=== PATIENT | male | born 1960 | race Caucasian/White ===

== ENCOUNTER → 2020-03-27 15:03 | Outpatient (CLI) | payer BC, SELFPAY ==
--- NOTE | 2020-03-27 15:06 | CA_ITS ---
APPROVED REPORT EXAM: Comprehensive 2D, Doppler, and color-flow Echocardiogram Conference Planning Manager: Josee Molina RVT Ht: 5 ft 11 in Wt: 212lbs BSA: 2.16 BP: 142/82 mmHg Indications: SOA,CP,HTN,HLD,CABG,CAD,ABN EKG 2D Dimensions LVOT 1.93 cm (M/F) 1.5-2.5 M-Mode Dimensions RVDd 3.21 cm (0.9-2.6) LA Diam 3.93 cm (1.9-4.0) LVDd 5.17 cm (3.5-5.7) Ao Diam 3.37 cm (2.0-3.7) LVDs 3.67 cm (3.5-5.7) IVSd 0.53 cm (0.6-1.1) PWd 0.86 cm (0.6-1.1) EF (Teich) 55.40% FS 29.00% EDV (Teich) 127.80 mL ESV (Teich) 57.00 mL LV Diastology E Decel Time 163.00 (160-240 msec) E/A Ratio 0.7 MED E' 5.20 (< 7 cm/sec) E'/MED E' Ratio 15.19 (>14) LAT E' 10.20 (<10 cm/sec) E/LAT E' Ratio 7.75 (>14) Mitral Valve MV E Max Terrell. 79.00 (40-130 cm/s) MV A Velocity 111.00 (40-130 cm/s) E/A Ratio 0.71 MV Decel. Time 163.00 (160-240 ms) MV PHT 48.00 ms Pulmonary Valve PV Peak Velocity 83.00 (50-150 cm/s) Tricuspid Valve TR P. Velocity 186.00 cm/s RAP Estimate 10.00 mmHg RVSP 23.90 mmHg Left Ventricle Technically difficult study because of the patient fact in poor acoustic windows. Left atrium is mildly enlarged, left ventricle is normal size, mild concentric left ventricular hypertrophy, visually estimated ejection fraction 45%, there is marked hypokinesis involving the inferior basal and posterolateral wall. Grade 1 diastolic dysfunction seen with tissue Doppler evidence of raise left atrial pressure. Right Ventricle Right atrium and right ventricle are normal size and contractility. Aortic Valve Aortic valve is minimally thickened and fibrosed, there is no aortic stenosis or aortic insufficiency. Mitral Valve Mitral valve leaflets are minimally thickened, there is mild mitral regurgitation. Tricuspid Valve Tricuspid valve is grossly normal, there is mild tricuspid regurgitation, tricuspid regurgitation jet velocity is inadequate for calculation of the right ventricular systolic pressure. Pulmonic Valve Chitra valve is poorly visualized. Great Vessels Aortic root is normal size. Pericardium No significant pericardial effusion noted. Conclusion 1. Mildly enlarged left atrium, normal left ventricular size, mild concentric left ventricular hypertrophy, visually estimated ejection fraction 45% with segmental wall motion abnormality described above, grade 1 diastolic dysfunction seen with tissue Doppler evidence of raise left atrial pressure. 2. Mild mitral and tricuspid regurgitation. 3. No significant pericardial effusion noted. Electronically signed by : Flako Shell, 03/28/2020 06:26:32
== END ==
PROVIDERS: PCP Family Medicine; Visit Provider Nurse Practitioner Family
DX: R06.00 Dyspnea, unspecified (principal); R07.89 Other chest pain; R94.31 Abnormal electrocardiogram [ECG] [EKG]; I25.708 Atherosclerosis of coronary artery bypass graft(s), unspecified, with other forms of angina pectoris; E78.5 Hyperlipidemia, unspecified; I10 Essential (primary) hypertension; R40.0 Somnolence
CPT/HCPCS: 93306

== ENCOUNTER → 2020-04-08 12:06 | Outpatient (CLI) | payer BC, SELFPAY ==
[2020-04-08 12:18] LABS: Basophils % 0.5 % (0.1-2.0); Eosinophils # 0.3 K/mm3 (0.0-0.4); Eosinophils % 4.8 % (0.1-12.0); Hematocrit 45.8 % (42.0-52.0); Hemoglobin 15.4 g/dL (14.1-18.0); Lymphocytes # 1.8 K/mm3 (0.7-4.5); Lymphocytes % 25.4 % (10-50); Mean Corpuscular HGB Conc 33.6 g/dL (31.8-35.4); Mean Corpuscular Hemoglobin 30.5 pg (27.0-31.2); Mean Corpuscular Volume 90.8 fl (80-94); Mean Platelet Volume 7.9 fl (7.4-10.4); Monocytes # 0.5 K/mm3 (0.1-1.0); Monocytes % 6.5 % (1.7-9.3); Neutrophils # 4.4 K/mm3 (1.8-7.8); Neutrophils % 62.9 % (37.0-80.0); Platelet Count 215 K/mm3 (142-424); Red Blood Count 5.05 M/mm3 (4.60-6.20); Red Cell Distribution Width 13.4 % (11.5-17.5)
[2020-04-08 13:32] LABS: Anion Gap 11.4 mEq/L (5-15); Blood Urea Nitrogen 14 mg/dl (9-20); Calcium 9.5 mg/dl (8.4-10.2); Carbon Dioxide 30 mmol/L (22.0-30.0); Chloride 102 mmol/L (98-107); Estimated Glomerular Filt Rate 99 ml/min (>60); GFR (African American) 120 ML/MIN (>60); Glucose 115 mg/dl (74-100); Potassium 4.4 mmoL/L (3.5-5.1); Sodium 139 mmol/L (136-145)
[2020-04-08 14:29] LABS: Coronavirus 19 IgG Antibody Negative (Negative); Coronavirus 19 IgM Antibody Negative (Negative)
== END ==
PROVIDERS: Visit Provider Urology
DX: Z01.810 Encounter for preprocedural cardiovascular examination (principal); Z11.52 Encounter for screening for COVID-19; R06.00 Dyspnea, unspecified; R93.1 Abnormal findings on diagnostic imaging of heart and coronary circulation; I25.708 Atherosclerosis of coronary artery bypass graft(s), unspecified, with other forms of angina pectoris; E78.2 Mixed hyperlipidemia; I10 Essential (primary) hypertension
CPT/HCPCS: 36415; 80048; 85025; 86328

== ENCOUNTER 2020-04-10 09:36 | Day surgery (SDC) | payer BC, SELFPAY ==
[2020-04-10] VITALS (11 sets, daily range): BP systolic 146–200; BP diastolic 81–110; PULSE 61–84; RESP 16–20; O2SAT 80–98; BMI 29.9
--- NOTE | 2020-04-10 | IR_ITS ---
APPROVED REPORT Patient Location: Outpatient PROCEDURES Left heart catheterization Left ventriculogram Selective coronary angiogram Selective engagement of the left internal mammary artery to the LAD Selective engagement of the saphenous vein graft to the right coronary artery Selective engagement of the saphenous vein graft to the circumflex artery INDICATION Coronary artery disease, Angina pectoris, History of coronary bypass surgery Informed consent was obtained prior to the procedure. COMPLICATIONS NONE Estimated Blood Loss: LESS THAN 10 ML TECHNIQUE One percent lidocaine used to anesthetize the right groin. The right femoral artery was accessed via the Seldinger technique and a 5 Martiniquais sheath was placed in the right femoral artery. A JL 4, JR4 and a POLLOCK catheter were used to perform left heart catheterization, left ventriculogram selective coronary angiography as well as selective engagement of the 2 vein grafts and the left internal mammary artery. At the end of the procedure the apparatus was removed the groin was reprepped gloves were changed sheath was removed good hemostasis was achieved using Perclose device patient was transferred to the postop holding in stable condition ANGIOGRAPHIC RESULTS The left main artery Is patent The left anterior descending artery Ostially occluded The circumflex artery Is nondominant yet still large. The proximal segment has a 50% stenosis followed by mid vessel 80% stenosis. Competitive flow is identified from a vein graft The right coronary artery Is a dominant vessel and has a mid vessel 80% stenosis followed by distal complex sequential 90% stenosis. The posterior descending artery is proximally occluded. This vessel supplies a 2 mm posterior lateral branch which has a mid vessel 90% stenosis and then become subtotally occluded distally supplying a small amount of myocardium. The PARRISH ventriculogram reveals Dilated ventricle ejection fraction 35 to 40% with inferior wall akinesis The left ventricular end-diastolic pressure 15 mmHg The POLLOCK graft is widely patent to the LAD The saphenous vein graft supplying a diagonal artery is widely patent Saphenous vein graft supplying a small posterior descending artery is patent. The graft itself is small caliber and supplies a small posterior descending artery IMPRESSION Coronary disease as described above Patient has extensive disease throughout the right coronary artery as described above however distally this supplies a small amount of myocardium with an akinetic inferior wall. Although technically the right coronary artery could be stented in the mid and distal segment there is very poor runoff distally supplying a small amount of myocardium which would almost certainly cause a stent thrombosis in the mid and distal right coronary stent. Essentially this vessel was not clinically appropriate for revascularization due to the small amount of myocardium supplied distally I am concerned about the syncope with the inferior wall akinesis and reduced ejection fraction. The echocardiogram did not demonstrate inferior wall akinesis however this is very apparent on LV gram. Patient will be referred to electrophysiology for EP study Aggressive risk factor modification Beta-blockers combined with DESHAUN inhibitors LDL less than 55 Avoidance of tobacco products I would recommend loop recorder be placed today or soon as possible Patient requires better blood pressure control. His blood pressure was quite elevated today. He will be started on bisoprolol 10 mg daily Electronically signed by : Ramon Harvey, 04/10/2020 12:50:06
== END 2020-04-10 15:46 ==
LOC: CATHLAB 09:38
PROVIDERS: Visit Provider Internal Medicine
DX: I25.118 Atherosclerotic heart disease of native coronary artery with other forms of angina pectoris (principal); I25.708 Atherosclerosis of coronary artery bypass graft(s), unspecified, with other forms of angina pectoris; Z95.1 Presence of aortocoronary bypass graft; Z95.5 Presence of coronary angioplasty implant and graft; I25.2 Old myocardial infarction; I50.32 Chronic diastolic (congestive) heart failure; I11.0 Hypertensive heart disease with heart failure; Z79.899 Other long term (current) drug therapy; Z79.01 Long term (current) use of anticoagulants; Z79.82 Long term (current) use of aspirin
CPT/HCPCS: 93459; 99152; C1725; C1760; C1769; C1894; J1644; Q9967

== ENCOUNTER 2020-04-13 08:38 | Day surgery (SDC) | payer BC, SELFPAY ==
[2020-04-13 08:42] VITALS: BMI 29.8
[2020-04-13 08:58] VITALS: BP 136/84; PULSE 68; RESP 13; TEMP 36.3; O2SAT 97
[2020-04-13 09:03] VITALS: PULSE 63
[2020-04-13 09:22] VITALS: BP 138/87; PULSE 63; RESP 20; TEMP 36.6; O2SAT 97
--- NOTE | 2020-04-13 09:26 | P.PCN_ITS ---
[facility] Loop Recorder Date: 04/13/20 Time: 09:15 Procedure Performed:: Implantation of loop recorder Indication:: Syncope Technique:: Patient was brought to the cardiac [employer]. After informed consent obtained, 1% lidocaine with epinephrine was used to anesthetize the site along the left anterior aspect of the chest near the sternal border. Using the preformed scalpel, an incision was made and using the supplied preloaded apparatus, the lo op recorder was placed subcutaneously without difficulty. Following the deployment of the loop recorder interrogation of the device was performed to ensure appropriate voltage was being detecte(0.43 mV). Once this was verified, Steri-Strips were placed over the incision and the patient was prepped to discharge home. Patient tolerated the procedure well with minimal discomfort. Impression:: Successful implantation of [employer], a [employer] loop recorder Serial Number:: [id number] Plan:: Routine postop care
[2020-04-13 09:31] VITALS: BP 138/87; O2SAT 98
== END 2020-04-13 11:00 | disposition home or self-care (01) ==
LOC: CATHLAB 08:39
PROVIDERS: Visit Provider Internal Medicine
DX: I20.9 Angina pectoris, unspecified (principal); I11.0 Hypertensive heart disease with heart failure; I50.31 Acute diastolic (congestive) heart failure; I25.118 Atherosclerotic heart disease of native coronary artery with other forms of angina pectoris; I25.708 Atherosclerosis of coronary artery bypass graft(s), unspecified, with other forms of angina pectoris
CPT/HCPCS: 33285

== ENCOUNTER → 2020-05-15 08:54 | Outpatient (CLI) | payer BC, SELFPAY ==
[2020-05-15 09:27] LABS: Hemoglobin A1C 5.8 % (4.0-6.0)
[2020-05-15 09:33] LABS: Chloride 104 mmol/L (98-107); Potassium 4.1 mmoL/L (3.5-5.1); Sodium 142 mmol/L (136-145)
[2020-05-15 09:35] LABS: Alanine Aminotransferase 26 U/L (12-78); Aspartate Amino Transferase 27 U/L (17-59); Blood Urea Nitrogen 13 mg/dl (9-20); Estimated Glomerular Filt Rate 86 ml/min (>60); GFR (African American) 105 ML/MIN (>60)
[2020-05-15 09:36] LABS: Albumin Level 4.3 g/dl (3.5-5.0); Albumin/Globulin Ratio 1.5 (1.1-1.8); Alkaline Phosphatase 109 U/L (38-126); Anion Gap 9.1 mEq/L (5-15); Bilirubin,Total 0.8 mg/dl (0.2-1.3); Calcium 9.5 mg/dl (8.4-10.2); Carbon Dioxide 33 mmol/L (22.0-30.0); Chol/HDL Ratio 2.5 (1-3.5); Cholesterol 122 mg/dl (140-200); Globulin 2.9 g/dL (1.3-3.2); Glucose 106 mg/dl (74-100); HDL Cholesterol 49 mg/dl (40-60); Total Protein,Serum 7.2 g/dl (6.3-8.2); Triglycerides 119 mg/dl (30-150); VLDL Cholesterol 24 mg/dL (0-40)
== END ==
PROVIDERS: Visit Provider Nurse Practitioner Family
DX: Z00.00 Encounter for general adult medical examination without abnormal findings (principal); R73.9 Hyperglycemia, unspecified
CPT/HCPCS: 36415; 80053; 80061; 83036

== ENCOUNTER → 2020-05-29 13:22 | Outpatient (CLI) | payer BC, SELFPAY | PROVIDERS: PCP Nurse Practitioner Family; Visit Provider Internal Medicine Clinical Cardiac Electrophysiology | DX: Z01.818 Encounter for other preprocedural examination (principal); Z20.822 Contact with and (suspected) exposure to COVID-19 | CPT/HCPCS: U0003 ==

== ENCOUNTER → 2020-07-04 10:06 | Outpatient (CLI) | payer BC, SELFPAY ==
--- NOTE | 2020-07-04 10:11 | XR_ITS ---
PROCEDURE: XR CHEST 2V CLINICAL HISTORY: dyspnea COMPARISON: No exams were available for comparison FINDINGS: Median sternotomy and mediastinal clips are noted. Lobe triple recorder device is noted projecting over the left heart border. No lobar consolidation, pleural effusions or pneumothorax. Cardiac size and central pulmonary vasculature within normal limits. Vascular calcification is noted. Visualized osseous structures are unremarkable. IMPRESSION: Status post CABG. No lobar consolidation or pleural effusions. Dictated by: Dariela Boyd 07/04/2020 10:47 Dariela Boyd in OV 07/04/2020 10:47
== END ==
PROVIDERS: PCP Nurse Practitioner Family; Visit Provider Internal Medicine
DX: R06.00 Dyspnea, unspecified (principal); I20.9 Angina pectoris, unspecified; I51.9 Heart disease, unspecified; E78.5 Hyperlipidemia, unspecified; I10 Essential (primary) hypertension
CPT/HCPCS: 71046

== ENCOUNTER → 2020-07-10 15:12 | Outpatient (CLI) | payer BC, SELFPAY ==
[2020-07-10 15:30] LABS: Basophils # 0.1 K/mm3 (0-0.2); Basophils % 0.6 % (0.1-2.0); Eosinophils # 0.3 K/mm3 (0.0-0.4); Eosinophils % 4.1 % (0.1-12.0); Hematocrit 42.5 % (42.0-52.0); Hemoglobin 14.3 g/dL (14.1-18.0); Lymphocytes # 2.1 K/mm3 (0.7-4.5); Lymphocytes % 27.4 % (10-50); Mean Corpuscular HGB Conc 33.7 g/dL (31.8-35.4); Mean Corpuscular Hemoglobin 30.5 pg (27.0-31.2); Mean Corpuscular Volume 90.4 fl (80-94); Mean Platelet Volume 7.8 fl (7.4-10.4); Monocytes # 0.6 K/mm3 (0.1-1.0); Monocytes % 7.1 % (1.7-9.3); Neutrophils # 4.7 K/mm3 (1.8-7.8); Neutrophils % 60.8 % (37.0-80.0); Platelet Count 254 K/mm3 (142-424); Red Cell Distribution Width 13.3 % (11.5-17.5); White Blood Count 7.8 K/mm3 (4.8-10.8)
[2020-07-10 17:12] LABS: Chloride 106 mmol/L (98-107); Sodium 140 mmol/L (136-145)
[2020-07-10 17:13] LABS: Potassium 4.7 mmoL/L (3.5-5.1)
[2020-07-10 17:15] LABS: Alanine Aminotransferase 29 U/L (12-78); Anion Gap 10.7 mEq/L (5-15); Aspartate Amino Transferase 29 U/L (17-59); Bilirubin,Unconjugated 0.3 mg/dL (0.0-1.1); Blood Urea Nitrogen 11 mg/dl (9-20); Calcium 9.1 mg/dl (8.4-10.2); Carbon Dioxide 28 mmol/L (22.0-30.0); Estimated Glomerular Filt Rate 99 ml/min (>60); GFR (African American) 120 ML/MIN (>60); Glucose 98 mg/dl (74-100)
[2020-07-10 17:16] LABS: Albumin Level 4.1 g/dl (3.5-5.0); Alkaline Phosphatase 113 U/L (38-126); Bilirubin,Direct 0.1 mg/dl (0.0-0.4); Bilirubin,Indirect 0.3 mg/dL (0.0-0.9); Bilirubin,Total 0.4 mg/dl (0.2-1.3); Total Protein,Serum 6.6 g/dl (6.3-8.2)
[2020-07-10 17:22] LABS: NT Pro Brain Natriuretic Pep. 154 pg/mL (0-125)
== END ==
PROVIDERS: Visit Provider Urology
DX: R06.00 Dyspnea, unspecified (principal); R07.9 Chest pain, unspecified; I25.10 Atherosclerotic heart disease of native coronary artery without angina pectoris; R94.31 Abnormal electrocardiogram [ECG] [EKG]; E78.5 Hyperlipidemia, unspecified; I10 Essential (primary) hypertension; R40.0 Somnolence
CPT/HCPCS: 36415; 80048; 80076; 83880; 85025

== ENCOUNTER → 2020-10-13 11:32 | Outpatient (CLI) | payer BC, SELFPAY ==
[2020-10-13 13:50] LABS: Chloride 101 mmol/L (98-107); Potassium 4.5 mmoL/L (3.5-5.1); Sodium 142 mmol/L (136-145)
[2020-10-13 13:53] LABS: Anion Gap 12.5 mEq/L (5-15); Blood Urea Nitrogen 12 mg/dl (9-20); Calcium 9.4 mg/dl (8.4-10.2); Carbon Dioxide 33 mmol/L (22.0-30.0); Estimated Glomerular Filt Rate 86 ml/min (>60); GFR (African American) 105 ML/MIN (>60); Glucose 105 mg/dl (74-100)
[2020-10-13 14:02] LABS: NT Pro Brain Natriuretic Pep. 184 pg/mL (0-125)
== END ==
PROVIDERS: Visit Provider Urology
DX: R06.00 Dyspnea, unspecified (principal); I25.10 Atherosclerotic heart disease of native coronary artery without angina pectoris
CPT/HCPCS: 36415; 80048; 83880

== ENCOUNTER → 2020-10-17 13:05 | Outpatient (CLI) | payer BC, SELFPAY | PROVIDERS: PCP Nurse Practitioner Family; Visit Provider Urology | DX: G47.33 Obstructive sleep apnea (adult) (pediatric) (principal); R09.02 Hypoxemia | CPT/HCPCS: G0399 ==

== ENCOUNTER → 2021-04-11 09:39 | Outpatient (CLI) | payer BC, SELFPAY ==
[2021-04-11 10:14] LABS: Basophils # 0.1 K/mm3 (0-0.2); Basophils % 1.6 % (0.1-2.0); Eosinophils # 0.4 K/mm3 (0.0-0.4); Hematocrit 46.4 % (42.0-52.0); Hemoglobin 15.1 g/dL (14.1-18.0); Lymphocytes # 2.1 K/mm3 (0.7-4.5); Mean Corpuscular HGB Conc 32.6 g/dL (31.8-35.4); Mean Corpuscular Hemoglobin 30.9 pg (27.0-31.2); Mean Corpuscular Volume 94.9 fl (80-94); Mean Platelet Volume 8.2 fl (7.4-10.4); Monocytes # 0.4 K/mm3 (0.1-1.0); Monocytes % 6.4 % (1.7-9.3); Neutrophils # 3.7 K/mm3 (1.8-7.8); Neutrophils % 55.1 % (37.0-80.0); Platelet Count 223 K/mm3 (142-424); Red Blood Count 4.89 M/mm3 (4.60-6.20); Red Cell Distribution Width 13.2 % (11.5-17.5); White Blood Count 6.8 K/mm3 (4.8-10.8)
[2021-04-11 12:44] LABS: 25-OH Vitamin D, Total 31.5 ng/mL (30-100)
[2021-04-11 12:51] LABS: Alanine Aminotransferase 23 U/L (12-78); Albumin/Globulin Ratio 1.6 (1.1-1.8); Alkaline Phosphatase 102 U/L (38-126); Anion Gap 8.2 mEq/L (5-15); Aspartate Amino Transferase 25 U/L (17-59); Bilirubin,Total 0.6 mg/dl (0.2-1.3); Blood Urea Nitrogen 12 mg/dl (9-20); Calcium 9.1 mg/dl (8.4-10.2); Carbon Dioxide 31 mmol/L (22.0-30.0); Chloride 103 mmol/L (98-107); Chol/HDL Ratio 2.4 (1-3.5); Cholesterol 107 mg/dl (140-200); Estimated Glomerular Filt Rate 86 ml/min (>60); GFR (African American) 104 ML/MIN (>60); Globulin 2.5 g/dL (1.3-3.2); Glucose 101 mg/dl (74-100); HDL Cholesterol 45 mg/dl (40-60); Potassium 4.2 mmoL/L (3.5-5.1); Sodium 138 mmol/L (136-145); Total Protein,Serum 6.5 g/dl (6.3-8.2); Triglycerides 95 mg/dl (30-150); VLDL Cholesterol 19 mg/dL (0-40)
[2021-04-11 13:02] LABS: Direct LDL Cholesterol 50.09 mg/dL (100-129)
[2021-04-11 13:23] LABS: Thyroid Stimulating Hormone 1.68 uIU/mL (0.465-4.68)
[2021-04-11 13:41] LABS: Vitamin B12 345 pg/mL (239-931)
== END ==
PROVIDERS: Visit Provider Nurse Practitioner Family
DX: Z00.00 Encounter for general adult medical examination without abnormal findings (principal); R55 Syncope and collapse; I25.10 Atherosclerotic heart disease of native coronary artery without angina pectoris; I48.0 Paroxysmal atrial fibrillation; R53.83 Other fatigue; E66.9 Obesity, unspecified; Z68.31 Body mass index [BMI] 31.0-31.9, adult
CPT/HCPCS: 36415; 80053; 80061; 82306; 82607; 84443; 85025

== ENCOUNTER 2021-04-27 08:58 | Outpatient (RCR) | payer BC, SELFPAY ==
--- NOTE | 2021-04-27 09:55 | HMH.PTOPEV ---
PT Outpatient Evaluation Rehab PT Outpatient Evaluation Start: 04/27/21 09:42 Freq: Status: Active Protocol: Document 04/27/21 09:43 DORA (Rec: 04/27/21 09:55 PHOERVIN [id number]) Electronically Signed By Beny Heredia, PT 04/27/21 09:43 Outpatient Therapy Subjective History Subjective History Pt is 61 yowm who presents with c/o neck and upper back pain x ~ 3 mos. He reports, I got jerked [place] train [place] the [employer]. He reports pain is worse with work using his arems, especially overhead . 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 He also reports hx of CABG x 5v ~ 2 yrs ago. Since that time he has also suffered intermittent blackouts which also played a part in his current injury. Chief Complaint Pain Symptom Type Sharp Symptoms Relieved By Rest/Positioning Symptoms Aggravated By Physical Activity Prior Functional Limitations None Current Functional Limitations Reaching,Lifting,Desk Work/ Reading Symptom Description Intermittent,Activity Dependent Level of pain today (0-10) 3 Pain scale - at its worst (0-10) 8 Cervical Eval Palpation Cervical Muscles R Upper Trapezius,L Upper Trapezius Cervical/Thoracic Palpation Findings Tenderness Posture Head/C-Spine Posture Sitting Position Neutral Position Head/C-Spine Posture Standing Position Neutral Position Flexibility Deficits Upper Trapezius Muscle Length (R) Mild Tightness,(L) Mild Tightness Levaetor Scapulae Muscle Length (R) Mild Tightness,(L) Mild Tightness Pectoralis Major Muscle Length (R) Mild Tightness,(L) Mild Tightness Pectoralis Minor Muscle Length (R) Mild Tightness,(L) Mild Tightness Passive Joint Mobility Cervical PIVM WNL: R OA L OA R AA L AA R C2/3 L C2/3 R C3/4 L C3/4 R C4/5 L C4/5
== END 2021-04-27 08:59 | disposition home or self-care (01) ==
LOC: PT 08:58
PROVIDERS: PCP Nurse Practitioner Family; Visit Provider Nurse Practitioner Family
DX: M54.2 Cervicalgia (principal); M54.6 Pain in thoracic spine
CPT/HCPCS: 97163

== ENCOUNTER → 2021-05-01 08:41 | Outpatient (CLI) | payer BC, SELFPAY ==
--- NOTE | 2021-05-01 | CA_ITS ---
FINAL REPORT TECHNIQUE: Color Doppler, duplex Doppler and zelaya scale sonography of the bilateral neck arterial vasculature was performed. Velocities were measured in the carotid arteries. Stenosis evaluation based on the validated velocity criteria. CLINICAL HISTORY: syncope while working and bending over per patient. HTN, Hyperlipidemia, hx of CABG. FINDINGS: The peak systolic velocity of the right common carotid artery is 142 cm/s. The peak systolic velocity of the right internal carotid artery is 79cm/s and end diastolic velocity 25 cm/s. The ICA/CCA ratio is 0.55. A minimal amount of plaque is present. The right external carotid artery is patent. The right vertebral artery is patent with antegrade flow. The peak systolic velocity of the left common carotid artery is 114 cm/s. The peak systolic velocity of the left internal carotid artery is 82 cm/s and end diastolic velocity 25 cm/s. The ICA/CCA ratio is 0.76. A minimal amount of plaque is present. The left external carotid artery is patent.The left vertebral artery is patent with antegrade flow. IMPRESSION: Less than 20 % bilateral carotid stenosis. Bilateral patent vertebral arteries with antegrade flow. If indicated, CTA or MRA could further evaluate. Reviewed, Interpreted and Dictated by Ramiro Abbasi MD Transcribed by Nusrat Lazaro Authenticated by Ramiro Abbasi MD on 05/01/2021 11:25:07 AM [facility]
== END ==
LOC: RT 08:44
PROVIDERS: PCP Nurse Practitioner Family; Visit Provider Nurse Practitioner Family
DX: R55 Syncope and collapse (principal)
CPT/HCPCS: 93880

== ENCOUNTER → 2021-10-10 09:58 | Outpatient (CLI) | payer BC, SELFPAY ==
[2021-10-10 10:28] LABS: Basophils # 0.1 K/mm3 (0-0.2); Basophils % 1.1 % (0.1-2.0); Eosinophils # 0.3 K/mm3 (0.0-0.4); Eosinophils % 4.6 % (0.1-12.0); Hematocrit 44.4 % (42.0-52.0); Hemoglobin 14.1 g/dL (14.1-18.0); Lymphocytes # 1.4 K/mm3 (0.7-4.5); Lymphocytes % 22.1 % (10-50); Mean Corpuscular HGB Conc 31.8 g/dL (31.8-35.4); Mean Corpuscular Hemoglobin 29.6 pg (27.0-31.2); Mean Corpuscular Volume 93.1 fl (80-94); Mean Platelet Volume 7.7 fl (7.4-10.4); Monocytes # 0.4 K/mm3 (0.1-1.0); Monocytes % 7.1 % (1.7-9.3); Neutrophils # 4.1 K/mm3 (1.8-7.8); Neutrophils % 65.2 % (37.0-80.0); Platelet Count 219 K/mm3 (142-424); Red Blood Count 4.77 M/mm3 (4.60-6.20); Red Cell Distribution Width 13.4 % (11.5-17.5); White Blood Count 6.2 K/mm3 (4.8-10.8)
[2021-10-10 11:02] LABS: Alanine Aminotransferase 28 U/L (12-78); Albumin Level 3.9 g/dl (3.5-5.0); Alkaline Phosphatase 98 U/L (38-126); Anion Gap 10.9 mEq/L (5-15); Aspartate Amino Transferase 33 U/L (17-59); Bilirubin,Indirect 0.5 mg/dL (0.0-0.9); Bilirubin,Total 0.5 mg/dl (0.2-1.3); Bilirubin,Unconjugated 0.7 mg/dL (0.0-1.1); Blood Urea Nitrogen 9 mg/dl (9-20); Carbon Dioxide 29 mmol/L (22.0-30.0); Chloride 103 mmol/L (98-107); Chol/HDL Ratio 2.4 (1-3.5); Cholesterol 101 mg/dl (140-200); Estimated Glomerular Filt Rate 86 ml/min (>60); GFR (African American) 104 ML/MIN (>60); Glucose 107 mg/dl (74-100); HDL Cholesterol 42 mg/dl (40-60); Magnesium 1.8 mg/dl (1.6-2.3); Potassium 3.9 mmoL/L (3.5-5.1); Sodium 139 mmol/L (136-145); Total Protein,Serum 6.3 g/dl (6.3-8.2); Triglycerides 113 mg/dl (30-150); VLDL Cholesterol 23 mg/dL (0-40)
[2021-10-10 11:17] LABS: Free T4 (Free Thyroxine) 0.92 ng/dl (0.78-2.19)
[2021-10-10 11:32] LABS: Thyroid Stimulating Hormone 1.79 uIU/mL (0.465-4.68)
== END ==
PROVIDERS: PCP Nurse Practitioner Family; Visit Provider Nurse Practitioner
DX: R06.00 Dyspnea, unspecified (principal); R07.9 Chest pain, unspecified; R42 Dizziness and giddiness; R55 Syncope and collapse; I25.10 Atherosclerotic heart disease of native coronary artery without angina pectoris; I10 Essential (primary) hypertension; E78.5 Hyperlipidemia, unspecified; R94.31 Abnormal electrocardiogram [ECG] [EKG]
CPT/HCPCS: 36415; 80048; 80061; 80076; 83735; 84439; 84443; 85025

== ENCOUNTER → 2021-11-13 07:54 | Outpatient (CLI) | payer BC, SELFPAY ==
--- NOTE | 2021-11-13 07:55 | CA_ITS ---
APPROVED REPORT EXAM: Comprehensive 2D, Doppler, and color-flow Echocardiogram Technical Support Consultant: Nubia Peter CRT Ht: 5 ft 11 in Wt: 223lbs BSA: 2.21 BP: 151/109 mmHg Indications: Abnormal ECG, Shortness of Breath, CAD, Hyperlipidemia, Hypertension/HDD, CABG, LOOP RECORDER, PAF, [place], ablation scheduled 2D Dimensions LVOT 2.03 cm (M/F) 1.5-2.5 LA Volume 66.20 mL LA Volume Index 30.00 mL/m2 (M/F) 16-34 M-Mode Dimensions RVDd 2.98 cm (0.9-2.6) LA Diam 4.20 cm (1.9-4.0) LVDd 4.59 cm (3.5-5.7) Ao Diam 4.22 cm (2.0-3.7) LVDs 3.30 cm (3.5-5.7) IVSd 1.81 cm (0.6-1.1) PWd 0.89 cm (0.6-1.1) EF (Teich) 54.40% FS 28.10% EDV (Teich) 96.80 mL TAPSE 1.88 (<1.7) ESV (Teich) 44.10 mL LV Diastology E Decel Time 250.00 (160-240 msec) E/A Ratio 0.88 MED E' 6.50 (< 7 cm/sec) MED A' 8.90 cm/s E'/MED E' Ratio 11.69 (>14) LAT E' 9.50 (<10 cm/sec) LAT A' 10.80 cm/s E/LAT E' Ratio 8.00 (>14) Aortic Valve AO Peak GR. 17.20 mmHg Mitral Valve MV A Velocity 86.00 (40-130 cm/s) E/A Ratio 0.88 MV Decel. Time 250.00 (160-240 ms) Pulmonary Valve PV Peak Velocity 167.00 (50-150 cm/s) Tricuspid Valve TR P. Velocity 210.00 cm/s RAP Estimate 10.00 mmHg RVSP 27.70 mmHg Left Ventricle Technically difficult study because of the patient factors and poor acoustic windows. Left atrium is mildly enlarged, left ventricle is normal size mild concentric left ventricular hypertrophy, estimated ejection fraction approximately 50%, there is marked hypokinesis involving the basal septum and inferior basal wall. Grade 1 diastolic dysfunction seen without tissue Doppler evidence of raise left atrial pressure. Right Ventricle Right atrium and right ventricle are qualitatively mildly enlarged with normal contractility. Aortic Valve Aortic valve is thickened and calcified without aortic stenosis or aortic insufficiency. Mitral Valve Mitral valve leaflets are minimally thickened, there is mild mitral regurgitation. Tricuspid Valve Tricuspid valve is grossly normal, there is mild tricuspid regurgitation, calculated right ventricular systolic pressure 27 mmHg. Pulmonic Valve Pulmonic valve is poorly visualized. Great Vessels Aortic root is normal size. Inferior vena cava is poorly visualized. Pericardium No significant pericardial effusion noted. Conclusion 1. Mild biatrial enlargement, normal left ventricular size, mild concentric left ventricular hypertrophy, estimated ejection fraction 50% with segmental wall motion abnormality described above, grade 1 diastolic dysfunction seen without tissue Doppler evidence of reduced left atrial pressure. Endocardial surfaces are poorly visualized. 2. Mildly enlarged right ventricle with normal contractility. 3. Mild mitral and tricuspid regurgitation. Calculated right ventricular systolic pressure is 27 mmHg. 4. No significant pericardial effusion. 5. Inferior vena cava is poorly visualized. Electronically signed by : Flako Shell MD 11/14/2021 06:23:29
== END ==
LOC: RT 07:55
PROVIDERS: PCP Nurse Practitioner Family; Visit Provider Nurse Practitioner Family
DX: I47.2 Ventricular tachycardia (principal); I51.9 Heart disease, unspecified
CPT/HCPCS: 93306

== ENCOUNTER 2022-04-22 07:54 | Day surgery (SDC) | payer BC, SELFPAY ==
[2022-04-22 08:00] VITALS: BMI 30.5
[2022-04-22 08:34] VITALS: BP 172/105; PULSE 55; RESP 18; TEMP 36.9; O2SAT 95
[2022-04-22 08:38] VITALS: PULSE 55
[2022-04-22 09:13] VITALS: BP 152/95; PULSE 55; PULSE 56; RESP 18; TEMP 36.9; O2SAT 96
--- NOTE | 2022-04-22 11:27 | EXP.LOOP ---
[facility] Loop Recorder Date: 04/22/22 Time: 09:00 Procedure Performed:: Loop recorder removal Indication:: No longer connecting due to battery depletion Technique:: Patient was brought to the cardiac [facility] as an outpatient. After informed consent was obtained, 1% lidocaine with epinephrine was used to anesthetize the area over the loop recorder. Scalpel was used for incision with blunt dissection down to the device. Forceps used to remove the device successfully. Surgical glue and Steri-Strips placed to approximate the edges. Pressure dressing with Tegaderm covering applied. Patient tolerated procedure without complications. Impression:: Successful removal of [employer] loop recorder Serial Number:: Not recorded Plan:: Routine postop care
== END 2022-04-22 09:33 | disposition home or self-care (01) ==
LOC: CATHLAB 07:55
PROVIDERS: PCP Internal Medicine; Visit Provider Internal Medicine
DX: Z45.09 Encounter for adjustment and management of other cardiac device (principal)
CPT/HCPCS: 33285; 33286

== ENCOUNTER → 2022-08-20 09:47 | Outpatient (CLI) | payer BC, SELFPAY ==
[2022-08-20 09:50] LABS: MANUAL DIFFERENTIAL MANUAL DIFFERENTIAL (MANUAL DIFF)
[2022-08-20 10:05] LABS: Basophils % 0.6 % (0.1-2.0); Eosinophils # 0.3 K/mm3 (0.0-0.4); Eosinophils % 4.5 % (0.1-12.0); Hematocrit 42.9 % (42.0-52.0); Hemoglobin 14.2 g/dL (14.1-18.0); Lymphocytes # 1.9 K/mm3 (0.7-4.5); Lymphocytes % 30.9 % (10-50); Mean Corpuscular HGB Conc 33.2 g/dL (31.8-35.4); Mean Corpuscular Hemoglobin 30.7 pg (27.0-31.2); Mean Corpuscular Volume 92.5 fl (80-94); Mean Platelet Volume 8.2 fl (7.4-10.4); Monocytes # 0.4 K/mm3 (0.1-1.0); Monocytes % 6.5 % (1.7-9.3); Neutrophils # 3.6 K/mm3 (1.8-7.8); Neutrophils % 57.4 % (37.0-80.0); Platelet Count 214 K/mm3 (142-424); Red Blood Count 4.64 M/mm3 (4.60-6.20); Red Cell Distribution Width 13.4 % (11.5-17.5); White Blood Count 6.3 K/mm3 (4.8-10.8)
[2022-08-20 11:09] LABS: Alanine Aminotransferase 21 U/L (12-78); Albumin Level 3.9 g/dl (3.5-5.0); Alkaline Phosphatase 87 U/L (38-126); Anion Gap 15.8 mEq/L (5-15); Aspartate Amino Transferase 28 U/L (17-59); Bilirubin,Indirect 0.6 mg/dL (0.0-0.9); Bilirubin,Total 0.6 mg/dl (0.2-1.3); Bilirubin,Unconjugated 0.8 mg/dL (0.0-1.1); Blood Urea Nitrogen 13 mg/dl (9-20); Calcium 8.9 mg/dl (8.4-10.2); Carbon Dioxide 29 mmol/L (22.0-30.0); Chloride 100 mmol/L (98-107); Chol/HDL Ratio 2.2 (1-3.5); Cholesterol 93 mg/dl (140-200); Estimated Glomerular Filt Rate 98 ml/min (>60); GFR (African American) 119 ML/MIN (>60); Glucose 103 mg/dl (74-100); HDL Cholesterol 43 mg/dl (40-60); Magnesium 1.7 mg/dl (1.6-2.3); Potassium 4.8 mmoL/L (3.5-5.1); Sodium 140 mmol/L (136-145); Total Protein,Serum 6.2 g/dl (6.3-8.2); Triglycerides 96 mg/dl (30-150); VLDL Cholesterol 19 mg/dL (0-40)
[2022-08-20 11:20] LABS: Direct LDL Cholesterol 46.78 mg/dL (100-129)
[2022-08-20 11:24] LABS: Free T4 (Free Thyroxine) 0.81 ng/dl (0.78-2.19)
[2022-08-20 11:39] LABS: Thyroid Stimulating Hormone 1.51 uIU/mL (0.465-4.68)
[2022-08-20 14:56] LABS: Eosinophils % 3 % (0-3); Lymphocytes % 43 % (10-50); Monocytes % 4 % (2-9); Neutrophils % 50 % (42-76); Platelet Estimate Normal; RBC Morphology Normal; Total Cells Counted 100
== END ==
PROVIDERS: PCP Nurse Practitioner Family; Visit Provider Nurse Practitioner
DX: R42 Dizziness and giddiness (principal); I25.708 Atherosclerosis of coronary artery bypass graft(s), unspecified, with other forms of angina pectoris; I48.0 Paroxysmal atrial fibrillation; E78.2 Mixed hyperlipidemia; I10 Essential (primary) hypertension; I51.9 Heart disease, unspecified
CPT/HCPCS: 36415; 80048; 80061; 80076; 83735; 84439; 84443; 85007; 85014; 85018; 85048; 85049

== ENCOUNTER 2023-03-11 23:45 | Emergency (ER) | payer BC, SELFPAY ==
[2023-03-11 23:52] VITALS: BP 196/101; PULSE 55; RESP 15; TEMP 36.6; O2SAT 99; BMI 32.1
--- NOTE | 2023-03-12 00:12 | HMH.EDGENADL ---
Discharge Plan Disposition Patient Disposition: Home, Self-Care Condition: Good Chief Complaint: Wound/Laceration Prescriptions Prescriptions: No Action valsartan 320 mg tablet 160 mg PO BID Qty: 90 3RF aspirin [Adult Low Dose Aspirin] 81 mg tablet,delayed release (DR/EC) 81 mg PO DAILY acetaminophen [Tylenol] 325 mg tablet 325 mg PO QID PRN (Reason: .) Eliquis 5 mg tablet See Rx Instructions .ROUTE .COMPLEX Qty: 180 3RF Rx Instructions: TAKE 1 TABLET TWICE DAILY atorvastatin [Lipitor] 80 mg tablet 80 mg PO HS Qty: 90 3RF bisoprolol fumarate 10 mg tablet See Rx Instructions .ROUTE .COMPLEX Qty: 180 1RF Dose Instruction: TAKE 1 TABLET BY MOUTH 2 TIMES A DAY Rx Instructions: TAKE 1 TABLET BY MOUTH 2 TIMES A DAY Referrals Follow up/Referrals: Debbie Del Toro APRN [Primary Care Provider] - See instructions Clinical Impressions Clinical Impression: Laceration of tongue Instructions Patient Instructions: DI for Laceration Repair Discharge ED Provider: Kem Kinney General Adult HPI General Chief complaint: Wound/Laceration Stated complaint: bit tongue, bleeding will not stop Time Seen by Provider: 03/11/23 23:53 Mode of Arrival: Family Vehicle Source of Information: Patient and Spouse Limitations: No Limitations Description of Symptoms (Recalled from ER Triage Doc. by RN): 63 yo male with cc of bit my tongue and it won't stop bleeding . Patient is on Eliquis. States he has tried multiple times to get it to stop but continues to bleed. Total time 8 hours. History of Present Illness HPI narrative: Patient has a PMHx significant for CAD s/p CABGx5 on eliquis who presents to the ED with complaints of tongue laceration. Patient notes that he inadvertently bit his tongue earlier this morning. Over the past 8 hours, the patient notes that he has been intermittently bleeding and cannot get hemostasis for more than half an hour. Related Data Home Medications Medication Instructions Recorded Confirmed aspirin 81 mg tablet,delayed 81 mg PO DAILY Heartburn 02/23/20 10/28/22 release (Adult Low Dose Aspirin) acetaminophen 325 mg tablet 325 mg PO QID PRN . 11/08/20 10/28/22 (Tylenol) Previous Rx's Medication Instructions Recorded apixaban 5 mg tablet (Eliquis) See Rx Instructions .Route 08/19/22 .COMPLEX . #180 tabs valsartan 320 mg tablet 160 mg PO BID #90 tabs 10/28/22 atorvastatin 80 mg tablet (Lipitor) 80 mg PO HS Cholesterol #90 tabs 10/29/22 bisoprolol fumarate 10 mg tablet See Rx Instructions .Route 02/26/23 .COMPLEX #180 tabs Allergies Allergy/AdvReac Type Severity Reaction Status Date / Time No Known Allergies Allergy Verified 10/28/22 14:28 [facility] Disclaimer: The information contained in this section may have been updated after the patient was seen, as this information can be updated by other users. Medical History Abnormal EKG CAD (coronary artery disease) Chest pain Daytime somnolence Dizziness Dyspnea HLD (hyperlipidemia) HTN (hypertension) Syncope Social History Smoking Status: Unknown if ever smoked alcohol intake: never substance use type: denies use current occupational status: employed Travel in the last 8 weeks: Inside the [place] household members: spouse housing: house ROS Obtained: Yes All systems reviewed & no additional complaints except as documented Physical Exam General General appearance: alert and in no apparent distress Head Head exam: atraumatic, normocephalic and normal inspection Eye Eye exam: Present normal appearance, PERRL and EOMI; Absent scleral icterus or nystagmus ENT ENT exam: Present normal exam, mucous membranes moist and normal external ear exam Expanded ENT Exam Mouth exam: Present laceration (Tongue laceration approx .25cm to R lateral aspect) Neck
[2023-03-12 00:30] VITALS: BP 159/99; PULSE 78; RESP 17; TEMP 36.7; O2SAT 97
== END 2023-03-12 00:32 | disposition home or self-care (01) ==
PROVIDERS: Emergency Provider Emergency Medicine; PCP Nurse Practitioner Family
DX: S01.512A Laceration without foreign body of oral cavity, initial encounter (principal); I25.10 Atherosclerotic heart disease of native coronary artery without angina pectoris; I10 Essential (primary) hypertension; E78.5 Hyperlipidemia, unspecified; Z79.01 Long term (current) use of anticoagulants
CPT/HCPCS: 41250; 99282

== ENCOUNTER 2023-10-03 08:29 | Outpatient (CLI) | payer BC, SELFPAY ==
[2023-10-03] MEDS: SODIUM CHLORIDE 0.9% 10ML SYR (RAD ONLY) 10 ML IV ×2 (08:30→10:30)
--- NOTE | 2023-10-03 08:30 | NM_ITS ---
APPROVED REPORT Exam: Nuclear Stress Test Indication: CAD, H/O AK, CABG, HTN, HYPERLIPIDEMIA, C.P., DYSPNEA, SYNCOPE, FATIGUE Patient Location: Outpatient Stress Tech: Leah Guerra LA Tech:Lilly Doty, ARRT RT (R)(N)(M) Ht: 5 ft 11 in Wt: 233 lbs HR: 55 bpm BP: 123/82 mmHg BSA: 2.25 m2 TID: 1.12 BMI: 32.4 History: CAD, H/O AK, CABG, HTN, HYPERLIPIDEMIA, C.P., DYSPNEA, SYNCOPE, FATIGUE Procedure: Patient received 0.4 mg of intravenous Lexiscan, resting heart rate 55 bpm, resting blood pressure 123/82 mmHg, with Lexiscan maximum heart rate achieved was 75 bpm which is % of the maximum predicted heart rate and blood pressure was 140/73 mmHg. With Lexiscan, patient denied any complaint of chest pain. Cardiac Stress and Resting SPECT Images: Cardiac Stress and Resting SPECT images were obtained using technetium 99m Myoview 30.5 mCi stress and 10.19 mCi at rest. Resting and stress imaging in supine and prone positions demonstrate a medium sized, moderate, predominantly fixed perfusion defect in the inferior and inferior septal LV myles. There is minimal reversibility towards the septal region. Gated imaging demonstrates mild reduction in global LV systolic function. There is severe hypokinesis of the inferior LV wall. LVEF is calculated at 45%. Conclusion: Medium sized, severe, predominantly fixed perfusion defect in the inferior and inferior septal LV myles. There is minimal reversibility towards the septal region. Gated imaging demonstrates mild reduction in global LV systolic function. There is severe hypokinesis of the inferior LV wall. LVEF is calculated at 45%. Electronically signed by : Mariana Rashid MD 10/05/2023 22:26:41
--- NOTE | 2023-10-03 08:39 | CA_ITS ---
APPROVED REPORT EXAM: Comprehensive 2D, Doppler, and color-flow Echocardiogram Bond Underwriter: Josee Molina RVT Ht: 5 ft 11 in Wt: 236lbs BSA: 2.26 BP: 159/81 mmHg Indications: CP,CABG,CAD,HTN,HLD,A-FIB,ABN EKG TDS-LIMITED WINDOWS 2D Dimensions LA Volume 59.00 mL LA Volume Index 26.11 mL/m2 (M/F) 16-34 M-Mode Dimensions RVDd 3.49 cm (0.9-2.6) LA Diam 3.89 cm (1.9-4.0) LVDd 4.17 cm (3.5-5.7) LVDs 2.81 cm (3.5-5.7) IVSd 1.20 cm (0.6-1.1) PWd 0.36 cm (0.6-1.1) EF (Teich) 61.40% FS 32.60% EDV (Teich) 77.30 mL TAPSE 1.13 (<1.7) ESV (Teich) 29.80 mL LV Diastology E Decel Time 283 (160-240 msec) E/A Ratio 0.5 Aortic Valve BERHANE Index 1.18 cm2/m2 AoV Peak Terrell. 118.0 (50-130 cm/s) AO Peak GR. 5.60 mmHg AO Mean GR. 3.50 (<5 mmHg) AO VTI 24.8 (18-25 cm) BERHANE (VTI) 2.74 (2.5-4.5 cm2) Mitral Valve MV E Max Terrell. 46.0 (40-130 cm/s) MV A Velocity 86.0 (40-130 cm/s) E/A Ratio 0.53 MV PHT 83.0 ms Pulmonary Valve PV Peak Velocity 56.0 (50-150 cm/s) Left Ventricle The left ventricle is normal size. The left ventricular systolic function is low normal. There is increased LV wall thickness. Borderline global hypokinesis is present. There is moderate hypokinesis of the inferior, inferoseptal, and inferolateral LV myles. Transmitral Doppler flow pattern suggests impaired LV relaxation. EF is 50%. Right Ventricle The right ventricle is normal size. Right ventricle is mildly hypokinetic. Atria The left atrium is mildly dilated. The right atrium size is normal. There is no Doppler evidence of interatrial shunt. Aortic Valve The aortic valve is mildly thickened. There is no aortic valvular stenosis. No aortic regurgitation is present. Mitral Valve The mitral valve is mildly thickened. No evidence of mitral valve stenosis. Mild mitral regurgitation. Tricuspid Valve The tricuspid valve leaflets are thin and pliable. Trace tricuspid regurgitation. There is insufficient TR jet to estimate RVSP. Pulmonic Valve The pulmonary valve is normal in structure. Trace pulmonic regurgitation. Great Vessels The aortic root is normal in size. The ascending aorta is not well-visualized. IVC is normal in size and collapses >50% with inspiration. Pericardium There is no pericardial effusion. Conclusion Low normal LV systolic function (LVEF 50%). Moderate hypokinesis of the inferior, inferoseptal, and inferolateral LV myles. Normal RV size with mild reduction in RV function. Mild LA dilation. Mild MR. Electronically signed by : Mariana Rashid MD 10/07/2023 12:39:57
[2023-10-03] MEDS: REGADENOSON 0.4MG/5ML SYRINGE 0.4 MG IV (09:50)
--- NOTE | 2023-10-03 10:59 | CA_ITS ---
APPROVED REPORT Exam: Pharmacologic Technologist: Leah Rothman, Ht: 5 ft 11 in Wt: 236 lbs BSA: 2.26 m2 HR: 55 bpm BP: 123/82 mmHg Rhythm: NSR Medical History Medications: Aspirin,,,,, Atorvastatin,,,,, Valsartan,,,,, Acetaminophen,,,,, BisOPROLOL Fumarate,,,,, Apixaban,,,,, Stress Test Details Test: LEXISCAN Reason for pharmacologic stress test: physical limitation. HR Resting HR: 57 bpm Max Heart Rate (APMHR): 158 bpm Max HR Achieved: 77 bpm Target HR (85% APMHR): 134 bpm % of APMHR: 49 Recovery HR: 66 bpm BP Resting BP: 123.0/82.0 mmHg Max BP: 152.0/82.0 mmHg Recovery BP: 125.0/85.0 mmHg ECG Resting ECG: Sinus tio, RBBB, left axis deviation, old inferior OK Stress ECG: No significant ST changes Arrhythmia: PVCs Clinical Exercise duration: 04:05 min Highest Stage Achieved: Exercise capacity: 1.0 METs Stress ECG Conclusion Symptoms: Mild SOA, mild chest pressure. Head discomfort. Brief abd cramping. Arrhythmias/Ectopy: Occasional PVCs ST-T Changes: No significant ST changes. Conclusion: Unremarkable Lexiscan stress. Myoview images are reported separately. Test Summary REST . . . . . . . Resting REST 04:58 . . 57 . 123/ 82 . . Stage 1 01:00 . . 67 . . . . Stage 2 01:00 . . 73 . 140/ 79 . . Stage 3 01:00 . . 70 . 144/ 83 . . Stage 4 01:00 . . 74 . . . . Stage 4 01:05 . . 72 . 152/ 82 . Stop exercise at 04:05 RECOVERY 01:00 . . 69 . 125/ 80 . . RECOVERY 02:00 . . 67 . 125/ 80 . . RECOVERY 03:00 . . 68 . 125/ 85 . . RECOVERY 03:19 . . 70 . 125/ 85 . . Electronically signed by : Mariana Rashid MD 10/05/2023 22:24:02
[2023-10-03] MEDS: ISOTOPE MYOVIEW (PER STUDY) 1 DOSE IV (11:55)
== END 2023-10-03 23:59 | disposition home or self-care (01) ==
LOC: RT 08:30
PROVIDERS: PCP Nurse Practitioner Family; Visit Provider Nurse Practitioner Family
DX: I25.10 Atherosclerotic heart disease of native coronary artery without angina pectoris (principal); I11.9 Hypertensive heart disease without heart failure; R07.89 Other chest pain; R06.00 Dyspnea, unspecified; R94.31 Abnormal electrocardiogram [ECG] [EKG]; I25.708 Atherosclerosis of coronary artery bypass graft(s), unspecified, with other forms of angina pectoris; I48.0 Paroxysmal atrial fibrillation
CPT/HCPCS: 78452; 93017; 93018; 93306; A9502; J2785

== ENCOUNTER 2023-10-22 08:41 | Outpatient (CLI) | payer BC, SELFPAY ==
[2023-10-22 09:09] LABS: Basophils # 0.1 K/mm3 (0-0.2); Basophils % 0.9 % (0.1-2.0); Eosinophils # 0.4 K/mm3 (0.0-0.4); Eosinophils % 5.4 % (0.1-12.0); Hematocrit 43.1 % (42.0-52.0); Hemoglobin 14.5 g/dL (14.1-18.0); Lymphocytes # 1.9 K/mm3 (0.7-4.5); Mean Corpuscular HGB Conc 33.6 g/dL (31.8-35.4); Mean Corpuscular Hemoglobin 31.7 pg (27.0-31.2); Mean Corpuscular Volume 94.3 fl (80-94); Mean Platelet Volume 7.9 fl (7.4-10.4); Monocytes # 0.5 K/mm3 (0.1-1.0); Monocytes % 6.6 % (1.7-9.3); Neutrophils # 4.2 K/mm3 (1.8-7.8); Neutrophils % 60.1 % (37.0-80.0); Platelet Count 180 K/mm3 (142-424); Red Blood Count 4.57 M/mm3 (4.60-6.20); Red Cell Distribution Width 13.7 % (11.5-17.5)
[2023-10-22 10:07] LABS: Alanine Aminotransferase 21 U/L (12-78); Albumin Level 3.9 g/dl (3.5-5.0); Alkaline Phosphatase 97 U/L (38-126); Anion Gap 11.3 mEq/L (5-15); Aspartate Amino Transferase 27 U/L (17-59); Bilirubin,Indirect 0.6 mg/dL (0.0-0.9); Bilirubin,Total 0.6 mg/dl (0.2-1.3); Bilirubin,Unconjugated 0.8 mg/dL (0.0-1.1); Blood Urea Nitrogen 9 mg/dl (9-20); Calcium 9.5 mg/dl (8.4-10.2); Carbon Dioxide 29 mmol/L (22.0-30.0); Chloride 104 mmol/L (98-107); Chol/HDL Ratio 2.7 (1-3.5); Cholesterol 106 mg/dl (140-200); Estimated Glomerular Filt Rate 86 ml/min (>60); GFR (African American) 103 ML/MIN (>60); Glucose 104 mg/dl (74-100); HDL Cholesterol 40 mg/dl (40-60); Potassium 4.3 mmoL/L (3.5-5.1); Sodium 140 mmol/L (136-145); Total Protein,Serum 6.4 g/dl (6.3-8.2); Triglycerides 126 mg/dl (30-150); VLDL Cholesterol 25 mg/dL (0-40)
[2023-10-22 10:18] LABS: Direct LDL Cholesterol 44.65 mg/dL (100-129)
[2023-10-22 10:37] LABS: Prostate Specific Ag Screen 1.1 ng/ml (0.0-4.0); Thyroid Stimulating Hormone 2.52 uIU/mL (0.465-4.68)
[2023-10-22 10:47] LABS: Free T4 (Free Thyroxine) 0.95 ng/dl (0.78-2.19)
== END 2023-10-22 23:59 | disposition home or self-care (01) ==
LOC: LAB 08:42
PROVIDERS: PCP Nurse Practitioner Family; Visit Provider Nurse Practitioner Family
DX: E11.9 Type 2 diabetes mellitus without complications (principal); R94.39 Abnormal result of other cardiovascular function study; I20.89 Other forms of angina pectoris; Z95.1 Presence of aortocoronary bypass graft; I48.0 Paroxysmal atrial fibrillation; I51.9 Heart disease, unspecified; I51.89 Other ill-defined heart diseases; R06.00 Dyspnea, unspecified; E78.2 Mixed hyperlipidemia; I10 Essential (primary) hypertension; I25.708 Atherosclerosis of coronary artery bypass graft(s), unspecified, with other forms of angina pectoris; R94.31 Abnormal electrocardiogram [ECG] [EKG]; I11.9 Hypertensive heart disease without heart failure; K21.9 Gastro-esophageal reflux disease without esophagitis
CPT/HCPCS: 36415; 80048; 80061; 80076; 84439; 84443; 85025; G0103

== ENCOUNTER 2023-11-19 07:59 | Day surgery (SDC) | payer BC, SELFPAY ==
[2023-11-19] VITALS (14 sets, daily range): BP systolic 121–164; BP diastolic 70–86; PULSE 57–79; RESP 18–19; TEMP 36.6; O2SAT 91–97; BMI 32.9
--- NOTE | 2023-11-19 07:18 | IR_ITS ---
APPROVED REPORT Patient Location: Outpatient Desk Monitor: RUBINA Briceno RT (R) PROCEDURES Left heart catheterization Left ventriculogram Selective coronary angiogram Selective engage the left internal mammary artery Selective engagement of saphenous vein graft to the circumflex artery/obtuse marginal artery Selective engagement of saphenous vein graft to posterior sending artery INDICATION Angina pectoris, Coronary artery disease, History of coronary bypass surgery Informed consent was obtained prior to the procedure. COMPLICATIONS None Estimated Blood Loss: Less than 10 mls TECHNIQUE One percent lidocaine used to anesthetize the right groin. The right femoral artery was accessed via the Seldinger technique and a 5 [place] sheath was placed in the right femoral artery. A JL 4, JR4 catheter were used to perform left heart catheterization, left ventriculogram selective coronary angiography as well as selective engagement of the 2 vein grafts and the left internal mammary artery. At the end of the procedure the patient was transferred to the postop holding area in stable condition for sheath removal. ANGIOGRAPHIC RESULTS The left main artery Patent The left anterior descending artery Ostially occluded The circumflex artery Has proximal 50 and mid vessel 90% stenosis. The first obtuse marginal artery has competitive flow from the vein graft The right coronary artery Is a dominant vessel with proximal 30% stenosis mid vessel calcified 80% and 50% stenosis with distal eccentric calcified 80% stenosis. The posterior descending artery is occluded. The posterior lateral branch is patent in the proximal segment and then subtotally occluded at mid vessel with no distal runoff The PARRISH ventriculogram reveals Reduced at 40% with inferior wall hypokinesis The left ventricular end-diastolic pressure 15 mmHg POLLOCK to LAD patent Saphenous vein graft to obtuse marginal artery off the circumflex artery is patent Saphenous vein graft to the posterior descending artery is patent IMPRESSION Adequate coronary revascularization as described above Severe disease throughout the [place] right coronary artery with subtotal occlusion of a posterior lateral branch. The coronary artery disease and LV dysfunction appears to be chronic and not amenable at this time to consideration of revascularization Reduced ejection fraction Normal LVEDP PLAN 1. Continue aggressive medical management and risk factor modification 2. If ejection fraction by echocardiogram is 35% or less consider AICD Electronically signed by : Ramon Harvey MD 11/19/2023 10:19:57
[2023-11-19 08:27] LABS: Basophils # 0.1 K/mm3 (0-0.2); Basophils % 0.7 % (0.1-2.0); Eosinophils # 0.3 K/mm3 (0.0-0.4); Eosinophils % 4.1 % (0.1-12.0); Hematocrit 43.3 % (42.0-52.0); Hemoglobin 14.1 g/dL (14.1-18.0); Lymphocytes # 2.1 K/mm3 (0.7-4.5); Lymphocytes % 29.7 % (10-50); Mean Corpuscular HGB Conc 32.4 g/dL (31.8-35.4); Mean Corpuscular Hemoglobin 30.9 pg (27.0-31.2); Mean Corpuscular Volume 95.4 fl (80-94); Mean Platelet Volume 7.8 fl (7.4-10.4); Monocytes # 0.4 K/mm3 (0.1-1.0); Monocytes % 5.9 % (1.7-9.3); Neutrophils # 4.2 K/mm3 (1.8-7.8); Neutrophils % 59.7 % (37.0-80.0); Platelet Count 214 K/mm3 (142-424); Red Blood Count 4.54 M/mm3 (4.60-6.20); Red Cell Distribution Width 13.6 % (11.5-17.5)
[2023-11-19 08:41] LABS: Anion Gap 8.7 mEq/L (5-15); Blood Urea Nitrogen 12 mg/dl (9-20); Calcium 8.6 mg/dl (8.4-10.2); Carbon Dioxide 28 mmol/L (22.0-30.0); Chloride 106 mmol/L (98-107); Creatinine Clearance Estimated 116 mL/min (50-200); Estimated Glomerular Filt Rate 86 ml/min (>60); GFR (African American) 103 ML/MIN (>60); Glucose 112 mg/dl (74-100); Potassium 3.7 mmoL/L (3.5-5.1); Sodium 139 mmol/L (136-145)
[2023-11-19] MEDS: diphenhydrAMINE 50MG/ML VIAL 50 MG IV (09:00)
[2023-11-19] MEDS: LIDOCAINE 1% 10ML MDV 20 ML IJ (09:00)
[2023-11-19] MEDS: HEPARIN 1,000 UNITS/500ML NS (CATH LAB) 3000 UNIT IV (09:00)
[2023-11-19] MEDS: 0.9 % SODIUM CHLORIDE 500 ML 25 ML IV (09:01)
[2023-11-19] MEDS: MIDAZOLAM HCL 1MG/1ML 5ML VIAL 1 MG IV (09:31)
[2023-11-19] MEDS: FENTANYL 100MCG/2ML VIAL 50 MCG IV (09:32)
[2023-11-19] MEDS: IOPAMIDOL-370 (76%);100ML BOTTLE 50 ML IV (11:16)
== END 2023-11-19 12:53 | disposition home or self-care (01) ==
PROVIDERS: PCP Nurse Practitioner Family; Visit Provider Internal Medicine
DX: I25.118 Atherosclerotic heart disease of native coronary artery with other forms of angina pectoris (principal); Z95.1 Presence of aortocoronary bypass graft; I48.0 Paroxysmal atrial fibrillation; I10 Essential (primary) hypertension; I25.708 Atherosclerosis of coronary artery bypass graft(s), unspecified, with other forms of angina pectoris; R94.31 Abnormal electrocardiogram [ECG] [EKG]; Z79.899 Other long term (current) drug therapy
CPT/HCPCS: 80048; 85025; 93459; 99152; C1725; C1769; C1894; J1200; J1644; J2250; J3010; Q9967

== ENCOUNTER 2024-06-10 07:50 | Outpatient (CLI) | payer BC, SELFPAY ==
--- NOTE | 2024-06-10 07:52 | CA_ITS ---
FINAL REPORT TECHNIQUE: Spectral and color Doppler exam CLINICAL HISTORY: HTN,HLD,CAD COMPARISON: None FINDINGS: DOPPLER RENAL VESSELS HISTORY: Hypertension . FINDINGS: Intrarenal resistive indices on the right are 0.47-0.7, normal . Intrarenal resistive indices on the left are 0.39-0.56, normal . Renal size is normal and symmetric. Right main renal artery systolic velocity: 153 cm/sec. Aortic-right renal artery flow velocity ratio: 1.5 COMMENT: No evidence of hemodynamically significant renal artery stenosis . Left main renal artery systolic velocity: 70 cm/sec. Aortic-left renal artery flow velocity ratio: 0.7 COMMENT: No evidence of hemodynamically significant renal artery stenosis . IMPRESSION: No evidence of hemodynamically significant renal artery stenosis CTA or gadolinium-enhanced MR may be considered as a more sensitive exam. Alternatively noncontrast MRI may be considered for assessing main renal arteries for stenosis as a more sensitive exam if the patient has renal insufficiency. Reviewed, Interpreted and Dictated by Owen Richards MD Transcribed by Beatrice Mejia Authenticated and [facility]
--- NOTE | 2024-06-10 08:17 | US_ITS ---
FINAL REPORT CLINICAL HISTORY: E78.2 - Mixed hyperlipidemia HTN COMPARISON: None FINDINGS: RENAL ULTRASOUND Ultrasound images of the kidneys were obtained. There is incidental note made of fatty infiltration of the liver. The right kidney measures 10.7 cm in length. It is normal echogenicity. There is no hydronephrosis. The left kidney measures 10.0 cm in length. It is normal echogenicity. There is no hydronephrosis. IMPRESSION: Normal renal ultrasound. Reviewed, Interpreted and Dictated by Owen Richards MD Transcribed by Britany Lopez Authenticated and [facility]
== END 2024-06-10 23:59 | disposition home or self-care (01) ==
LOC: RT 07:51
PROVIDERS: PCP Nurse Practitioner Family; Visit Provider Physician Assistant
DX: I10 Essential (primary) hypertension (principal); E78.2 Mixed hyperlipidemia; I25.708 Atherosclerosis of coronary artery bypass graft(s), unspecified, with other forms of angina pectoris
CPT/HCPCS: 76770; 93976

== ENCOUNTER 2024-06-23 08:54 | Outpatient (CLI) | payer BC, SELFPAY ==
[2024-06-23 09:45] LABS: Chloride 97 mmol/L (98-107); Sodium 133 mmol/L (136-145)
[2024-06-23 09:46] LABS: Potassium 4.2 mmoL/L (3.5-5.1)
[2024-06-23 09:48] LABS: Blood Urea Nitrogen 18 mg/dl (9-20); Estimated Glomerular Filt Rate 75 ml/min (>60); GFR (African American) 91 ML/MIN (>60)
[2024-06-23 09:49] LABS: Anion Gap 11.2 mEq/L (5-15); Calcium 9.3 mg/dl (8.4-10.2); Carbon Dioxide 29 mmol/L (22.0-30.0); Glucose 113 mg/dl (74-100)
== END 2024-06-23 23:59 | disposition home or self-care (01) ==
PROVIDERS: PCP Nurse Practitioner Family; Visit Provider Physician Assistant
DX: I25.708 Atherosclerosis of coronary artery bypass graft(s), unspecified, with other forms of angina pectoris (principal); E78.2 Mixed hyperlipidemia; I10 Essential (primary) hypertension
CPT/HCPCS: 36415; 80048

== ENCOUNTER 2024-07-05 09:06 | Outpatient (CLI) | payer BC, SELFPAY ==
[2024-07-05 11:18] LABS: Anion Gap 6.1 mEq/L (5-15); Blood Urea Nitrogen 15 mg/dl (9-20); Calcium 9.5 mg/dl (8.4-10.2); Carbon Dioxide 30 mmol/L (22.0-30.0); Chloride 100 mmol/L (98-107); Estimated Glomerular Filt Rate 85 ml/min (>60); GFR (African American) 103 ML/MIN (>60); Glucose 109 mg/dl (74-100); Potassium 4.1 mmoL/L (3.5-5.1); Sodium 132 mmol/L (136-145)
== END 2024-07-05 23:59 | disposition home or self-care (01) ==
LOC: LAB 09:06
PROVIDERS: PCP Nurse Practitioner Family; Visit Provider Physician Assistant
DX: E87.1 Hypo-osmolality and hyponatremia (principal)
CPT/HCPCS: 36415; 80048